=== PATIENT | male | born 1990 | race Two or more races ===

== ENCOUNTER 2017-12-28 14:09 | Emergency (ER) | payer BC ==
[~2017-12-28] VITALS: Ht 180.3 cm; Wt 108.9 kg
--- NOTE | 2017-12-28 14:15 | NUR ---
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 A/OX 4. BREATHING EVEN AND UNLABORED. NO SOB, NAD, VITALS STABLE. SAFETY AND COMFORT MEASURES IN PLACE. AWAITING MD ORDERS.
[2017-12-28 15:25] VITALS: BP 120/70
--- NOTE | 2017-12-28 15:25 | NUR ---
Patient discharged to home in stable condition. Written and verbal after care instructions given. Patient verbalizes understanding of instruction.
== END 2017-12-28 15:25 | disposition home or self-care (01) ==
LOC: ER 14:15
DX: S80.01XA Contusion of right knee, initial encounter (principal); Z71.6 Tobacco abuse counseling; Z60.2 Problems related to living alone; W20.8XXA Other cause of strike by thrown, projected or falling object, initial encounter; Y93.89 Activity, other specified; Y92.89 Other specified places as the place of occurrence of the external cause; Y99.8 Other external cause status
CPT/HCPCS: 99283; 99406; A4606; Z7610